=== PATIENT | female | born 1970 ===

== ENCOUNTER 2018-09-25 07:32 | Emergency (ER) | payer OTHER ==
[2018-09-25 07:32] VITALS: BMI 26.4
[2018-09-25 08:08] VITALS: RESP 18
--- NOTE | 2018-09-25 08:31 | ED PDOC ---
History of Present Illness History of Present Illness: 47 year old female with a history of breast cancer presents to the ED with cough and subjective fever for three days. Patient reports right sided rib pain when coughing. Cough is productive of sputum. She took Tylenol at home without relief. Denies shortness of breath, chest pain, congestion and other complaints. PMD: none provided HPI: Influenza Time Seen by Provider: 09/25/18 08:04 Chief Complaint: Cough, Cold, Congestion Chief Complaint (Provider): Cough, Cold, Congestion History Per: Patient, [employer] Prover (Fifi # [id number]) Exam Limitations: no limitations Onset/Duration Of Symptoms: Days (x 3) Symptoms include: fever, cough Past Medical History Reviewed: Historical Data, Nursing Documentation, Vital Signs Vital Signs: Last Vital Signs Temp 98.6 F 09/25/18 08:08 Pulse 89 09/25/18 08:08 Resp 18 09/25/18 08:08 BP 122/79 09/25/18 08:08 Pulse Ox 99 09/25/18 08:08 - Medical History PMH: Malignancy (breast CA) Denies: Chronic Kidney Disease - Surgical History Surgical History: No Surg Hx - Family History Family History: States: Unknown Family Hx - Home Medications Home Medications: Ambulatory Orders Medication Instructions Recorded Calcium [Calcium 500] 250 mg PO DAILY 03/20/15 Oxycodone HCl/Acetaminophen 1 tab PO Q4 PRN #20 tab 03/25/15 [Percocet 5-325 mg Tablet] Azithromycin [Zithromax] 500 mg PO DAILY #3 tab 09/25/18 Ibuprofen [Motrin] 600 mg PO Q6H PRN #20 tab 09/25/18 - Allergies Allergies/Adverse Reactions: Allergies Allergy/AdvReac Type Severity Reaction Status Date / Time No Known Allergies Allergy Verified 09/25/18 07:48 Review of Systems ROS Statement: Except As Marked, All Systems Reviewed And Found Negative Constitutional: Positive for: Fever Cardiovascular: Negative for: Chest Pain Respiratory: Positive for: Cough, Sputum. Negative for: Shortness of Breath Physical Exam - Reviewed Nursing Documentation Reviewed: Yes Vital Signs Reviewed: Yes - Physical Exam Appears: Positive for: No Acute Distress (speaking full sentences) Head Exam: Positive for: ATRAUMATIC, NORMAL INSPECTION, NORMOCEPHALIC Skin: Positive for: Normal Color, Warm, Dry Eye Exam: Positive for: EOMI, Normal appearance, PERRL ENT: Positive for: Normal ENT Inspection Neck: Positive for: Normal, Painless ROM, Supple Cardiovascular/Chest: Positive for: Regular Rate, Rhythm. Negative for: Murmur Respiratory: Positive for: Normal Breath Sounds. Negative for: Respiratory Distress Gastrointestinal/Abdominal: Positive for: Tenderness (right anterior rib tenderness). Negative for: Other (point tenderness, ecchymosis and lesions) Extremity: Positive for: Normal ROM (x 4). Negative for: Deformity, Swelling Neurologic/Psych: Positive for: Alert, Oriented (x 3). Negative for: Motor/Sensory Deficits Medical Decision Making Medical Decision Makin:36 Impression: cough and right rib pain Initial Plan: --CBC --CMP --D Dimer --PT/PTT --Urine dip --urine preg --Ribs and chest x-ray Scribe Attestation: Documented by Lizbeth Castano acting as a scribe for Britta Ohara MD Provider Scribe Attestation: All medical record entries made by the Scribe were at my direction and personally dictated by me. I have reviewed the chart and agree that the record accurately reflects my personal performance of the history, physical exam, medical decision making, and the department course for this patient. I have also personally directed, reviewed, and agree with the discharge instructions and disposition. - Laboratory Results Result Diagrams: 09/25/18 11:15 09/25/18 11:15 - ECG O2 Sat by Pulse Oximetry: 99 - Other Rad XR R ribs/chest X-Ray: Interpreted by Me X-Ray Interpretation: Negative. Disposition - Clinical Impression Clinical Impression: Acute bronchitis - Disposition Disposition: Routine/Home Disposition Time: 13:42 Condition: STABLE Additional Instructions: FOLLOW-UP WITH PMD WITHIN 2 DAYS FOR REEVALUATION. Prescriptions: Azithromycin [Zithromax] 500 mg PO DAILY #3 tab Ibuprofen [Motrin] 600 mg PO Q6H PRN #20 tab PRN Reason: Pain, Moderate (4-7) Instructions: Acute Bronchitis Forms: [facility] (Lithuanian) Print Language: FRENCH
[2018-09-25] MEDS ORDERED: DiphenhydrAMINE 50 mg/ml Inj IVP STA (10:19)
[2018-09-25 11:30] LABS: BASO % 0.2 % (0.0-2.0); EOS % 1.1 % (0.0-4.0); HEMOGLOBIN 12.3 g/dL (12.0-16.0); LYMPH # 1.1 K/uL (1.0-4.3); LYMPH % 27.1 % (20.0-40.0); MEAN CELL VOLUME 91.3 fl (81.0-99.0); MEAN CORPUSCULAR HEMOGLOBIN 29.5 pg (27.0-31.0); MEAN CORPUSCULAR HGB CONC 32.3 g/dL (33.0-37.0); MEAN PLATELET VOLUME 7.4 fl (7.2-11.7); MONO # 0.2 K/uL (0.0-0.8); MONO % 5.4 % (0.0-10.0); NEUT # 2.8 K/uL (1.8-7.0); NEUT % 66.2 % (50.0-75.0); NRBC % 0.1 % (0.0-0.0); RBC 4.18 Mil/uL (3.80-5.20); RED CELL DISTRIBUTION WIDTH 13.2 % (11.5-14.5); WHITE BLOOD COUNT 4.2 K/uL (4.8-10.8)
[2018-09-25 11:39] LABS: ALB/GLOB RATIO 1.2 (1.0-2.1); ALBUMIN 4.1 g/dL (3.5-5.0); ALT/SGPT 53 U/L (9-52); AST/SGOT 43 U/L (14-36); BLOOD UREA NITROGEN 16 mg/dl (7-17); CALCIUM 9.4 mg/dL (8.4-10.2); GFR NON-AFRICAN AMERICAN > 60
[2018-09-25 11:46] LABS: PARTIAL THROMBOPLASTIN TIME 32.7 Seconds (25.6-37.1)
[2018-09-25 11:53] LABS: D DIMER < 200 ng/mlDDU (0-230)
--- NOTE | 2018-09-25 13:32 | RAD ---
Date of service: 09/25/2018 PROCEDURE: Radiographs of the Chest and Right Ribs. HISTORY: R rib pain COMPARISON: None available. TECHNIQUE: Frontal radiograph of the chest and multiple oblique radiographs of the right ribs were obtained. FINDINGS: RIGHT RIBS: No fracture or focal lesion visualized. LUNGS: Clear. PLEURA: No pneumothorax or pleural fluid. CARDIOVASCULAR: Normal cardiac size. No pulmonary vascular congestion. No aortic atherosclerotic calcification present OTHER FINDINGS: None. IMPRESSION: Unremarkable radiographs of the chest and right ribs. No right rib fracture. Concordant results with the preliminary interpretation rendered by the emergency department physician procedure.
[2018-09-25 14:07] VITALS: BP 112/77; PULSE 75; TEMP 97.9
[2018-09-30 12:44] VITALS: O2SAT 99
== END 2018-09-25 14:19 | disposition home or self-care (01) ==
LOC: H.ER 07:32
DX: J20.9 Acute bronchitis, unspecified (principal); Z85.3 Personal history of malignant neoplasm of breast